=== PATIENT | female | born 2000 | race Caucasian/White ===

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

== ENCOUNTER 2019-03-05 02:04 | Emergency (ER) | payer OTHER ==
[2019-03-05 02:57] LABS: Urine Appearance Clear; Urine Bilirubin Negative (Negative); Urine Blood Negative (Negative); Urine Color Straw; Urine Glucose Negative (Negative); Urine Ketones Negative (Negative); Urine Nitrite Negative (Negative); Urine Protein Negative (Negative); Urine Specific Gravity 1.008 (1.010-1.030); Urine Urobilinogen Negative (Negative)
--- NOTE | 2019-03-05 03:18 | ED ---
- HPI Summary HPI Summary: Pt is a 18 y/o F presenting to the ED with a chief complaint of issues. She is 29wks , on her first , due on May 19. A0. She states she hasnt felt any movement all day which is abnormal for her, so she wanted to come into the ED to have the baby evaluated. She denies vaginal bleeding, discharge, abd pain, fever, vomiting, burning with urination, or other problems with . Next residential care facility manager appt Saturday. - History of Current Complaint Chief Complaint: EDOBProblems Stated Complaint: /HASNT FELT BABY MOVE PER PT Time Seen by Provider: 03/05/19 02:22 Hx Obtained From: Patient Chief Complaint: Concern for Demise Onset/Duration: Started Hours Ago, Still Present Timing: Constant, Lasting Hours Current Severity: None Pain Intensity: 0 Location of Pain: None Character: None Aggravating Factors: Nothing Alleviating Factors: Nothing Associated Signs and Symptoms: Negative: Fever, Urinary Symptoms, Vaginal Bleeding or Discharge, Vomiting - Allergies/Home Medications Allergies/Adverse Reactions: Allergies Allergy/AdvReac Type Severity Reaction Status Date / Time No Known Allergies Allergy Verified 03/05/19 02:08 Home Medications: Home Medications Tablet 1 tab PO DAILY 03/05/19 [History Confirmed 03/05/19] PMH/Surg Hx/FS Hx/Imm Hx Previously Healthy: Yes Endocrine/Hematology History: Denies: Hx Diabetes Cardiovascular History: Denies: Hx Hypertension - Surgical History Surgery Procedure, Year, and Place: Foot surgery Infectious Disease History: No Infectious Disease History: Denies: Traveled Outside the [place] in Last 30 Days - Family History Known Family History: Negative: Cardiac Disease, Hypertension, Diabetes - Social History Alcohol Use: None Hx Substance Use: Yes Substance Use Type: Reports: Marijuana Hx Tobacco Use: No Smoking Status (MU): Never Smoked Tobacco Review of Systems - ROS Summary Review of Systems Summary: Home Medications Medication Instructions Recorded Confirmed Type Tablet 1 tab PO DAILY 03/05/19 03/05/19 History Negative: Fever Negative: Abdominal Pain, Vomiting, Nausea Negative: burning, discharge, other - bleeding vaginally All Other Systems Reviewed And Are Negative: Yes Physical Exam - Summary Physical Exam Summary: General: Well-developed, Well-nourished gravid female. No acute distress. HEENT: Normocephalic, Atraumatic. Eyes: Conjuctiva normal, PERRL. Oropharynx: Clear, mucous membranes moist, (-) exudates. Neck: Soft, FROM, (-) lymphadenopathy, (-) thyromegaly, (-) JVD. Cardiovascular: Normal sinus rhythm, (-) murmur. Lungs: Clear to auscultation bilaterally (-) wheezes, (-) rales, (-) rhonchi. Abdomen: Uterus is soft, fundus above the umbilicus. heart tones 140s. Nml bowel sounds. Non-tender. Back: (-) CVA tenderness Extremities: No edema. Skin: Warm, dry, (-) rash. Neuro: Alert and oriented x3, no focal deficits. Psychiatric: Mood normal, affect normal. - Physical Exam Triage Information Reviewed: Yes Vital Signs Reviewed: Yes Procedures - Sedation Patient Received Moderate/Deep Sedation with Procedure: No Diagnostics - Vital Signs Vital Signs Temp Pulse Resp BP Pulse Ox 03/05/19 02:05 97.9 F 91 18 107/76 100 - Laboratory Lab Results: Lab Results 03/05/19 Range/Units 02:46 Urine Color Straw Urine Appearance Clear Urine pH 7.0 (5-9) Ur Specific [place] 1.008 L (1.010-1.030) Urine Protein Negative (Negative) Urine Ketones Negative (Negative) Urine Blood Negative (Negative) Urine Nitrate Negative (Negative) Urine Bilirubin Negative (Negative) Urine Urobilinogen Negative (Negative) Ur Leukocyte Esterase Negative (Negative) Urine Glucose Negative (Negative) Lab Statement: Any lab studies that have been ordered have been reviewed, and results considered in the medical decision making process. Course/Dx - Course Course Of Treatment: 18 year old female presents as at 28 weeks gestation with decreased movement after working all day. no abdominal pain, no vaginal discharge or bleeding. no fever or urinary symptoms. heart tones reassuring at 140s. improved movement of fetus. patient discharged to home. follow up with residential care facility manager. follow up sooner for any worsening symptoms - Diagnoses Provider Diagnoses: Decreased movement Discharge ED - Sign-Out/Discharge Documenting (check all that apply): Patient Departure - Discharge Plan Condition: Stable Disposition: HOME Patient Education Materials: (ED) Referrals: Garth JEAN,Rajat Pennington [Primary Care Provider] - Additional Instructions: Please follow up with your [employer] [employer] at your appointment on Saturday. Please return to ED for any new or worsening symptoms. - Billing Disposition and Condition Condition: STABLE Disposition: Home - Attestation Statements Document Initiated by Dennis: Yes Documenting Scribe: Zoe Paez Provider For Whom Dennis is Documenting (Include Credential): Dianne Dimas MD. Scribe Attestation: Zoe Moore, scribed for Dianne Dimas MD. on 03/05/19 at 1936. Scribe Documentation Reviewed: Yes Provider Attestation: The documentation as recorded by the Zoe webster accurately reflects the service I personally performed and the decisions made by , Dianne Dimas MD. Status of Scribe Document: Viewed
[2019-03-05 03:34] VITALS: BP 105/59
== END 2019-03-05 03:30 | disposition home or self-care (01) ==
LOC: ED 02:04
DX: O36.8130 Decreased fetal movements, third trimester, not applicable or unspecified (principal); Z3A.29 29 weeks gestation of pregnancy
CPT/HCPCS: 81003; 99282

== ENCOUNTER 2019-05-15 10:04 | Inpatient (IN) | payer OTHER ==
[2019-05-15] MEDS ORDERED: Lactated Ringers 1000 ML Bag* 1,000 ML IV ONE (11:25)
--- NOTE | 2019-05-15 11:35 | HP ---
General Information - Reason for Visit Rupture of membranes at term - General Information Maternal Age: 18 Grav: 1 Para: 0 SAB: 0 IEA: 0 Estimated Due Date: 05/20/19 Determined By: LMP Maternal Blood Type and Rh: O Positive - Results this Serology/RPR Result: Non-Reactive Rubella Result: Immune HBsAg Result: Negative HIV Result: Negative GBS Culture Result: Negative Past Medical History Delivery History: See Records Delivery History Comment: no prior deliveries Pertinent Past Medical History: Non-Contributory Pertinent Past Surgical History: See Records Past Surgical History Comment: Pin of metatarsal bone in 2013 Pertinent Family History: Non-Contributory - Antepartal Records Antepartal Records: Reviewed, Complicated by: - varicella equivocal status Review of Systems Constitutional: Uncomfortable CV Complaint: No Respiratory: Shortness of Breath: No Gastrointestinal: Normal Bowel Movement, Nausea Genitourinary: Leaking Fluid, No Dysuria, No Bleeding Musculoskeletal: Contractions Neurological: No Headache, No Visual Changes Movement: Normal Exam Allergies/Adverse Reactions: Allergies lidocaine Adverse Reaction (Intermediate, Verified 05/14/19 16:24) Pain B/P: 125/78, P: 84, R: 18, T: 98.8 Lab Values - Entire Visit: Laboratory Tests 05/15/19 10:47 Vag Amniotic Fld Detect Positive - Measurements Pre- Weight: 128 lb - Exam Breast: Breast Exam Deferred CVA: No CVA Tenderness Extremities: No Edema Heart: Normal Rhythm/Heart Sounds HEENT: No Significant Findings Lungs: Clear Bilaterally Reflexes: DTR 2+ - Abdominal Exam Abdomen Exam: Non-Tender, Fundal Height Consistent with Dates - Ultrasound/Biophysical Profile Ultrasound Status: Not Done Targeted Exam Findings See L&D Outpatient Visit Provider Note for Findings: N/A Estimated Weight: 7.5 lb by kellie Cervical Exam: 2cm Effacement: 90% Station: -1 Presenting Part: Vertex Membrane Status: SROM Amniotic Fluid Evaluation: Positive ROM Plus Bleeding/Discharge: None EFM Findings - External Monitor Findings Baseline Heart Rate: 135 External Monitor Findings: Accelerations Present, No Pattern of Variable or Late Decelerations, Variability Moderate, Baseline Stable Contractions: Regular, Moderate, 45-90 Seconds Contraction Frequency: 3-5 min Assessment/Plan - Plan Plan: Admit - Anticipate Vaginal Delivery - Date/Time of Admission Date of Admission: 05/15/19 Time of Admission: 11:30
[2019-05-15] MEDS ORDERED: Lactated Ringers 1000 ML Bag* 1,000 ML IV SCH ×2 (12:00→20:00)
[2019-05-15 12:10] LABS: Urine Benzodiazepine Screen None Detected (None Detect); Urine Opiates Screen None Detected (None Detect)
--- NOTE | 2019-05-15 17:13 | PN ---
Progress Note - Progress Note Date of Service: 05/15/19 Note: S: Reports UCs have gotten more intense. Having to really breathe through them now. Requests cervical exam O: FHR: baseline 150, moderate variability, + accelerations, no decelerations UCs: q 2-4 min, moderate to palpation VE: 3/90/-1 posterior. Clear fluid. Bloody show A: IUP at 39 2/7 weeks No evidence of metabolic acidemia Early labor P: Discussed position changes, keeping bladder empty. Dorota desires to get back into tub Reassess in 3-4 hrs or sooner PRN Anticipate SVB
[2019-05-15] MEDS ORDERED: OXYTOCIN* 10 UNITS/ML 1 ML VIAL IM ONE (19:25)
[2019-05-15] MEDS ORDERED: Varicella Virus Vaccine Live* 0.5 ML VIAL SUBCUT ONE (19:36)
[2019-05-15] MEDS ORDERED: Witch Hazel PAD* JAR TOPICAL PRN (19:36)
[2019-05-15] MEDS ORDERED: Acetaminophen TAB* 325 MG PO PRN (19:36)
[2019-05-15] MEDS ORDERED: Dibucaine 1% 28.35 GM TUBE PR PRN (19:36)
[2019-05-15] MEDS ORDERED: Glycerin ADULT SUPP PR PRN (19:36)
--- NOTE | 2019-05-15 19:59 | PROCNOTE ---
[facility] OB: Delivery Note - Delivery A Date of : 05/15/19 Time of : 18:57 [place] Sex: Female Score 1 Minute: 9 Score 5 Minutes: 9 Gestational Age in Weeks and Days at Delivery: 39 Weeks and 2 Days Delivery Method: Spontaneous Vaginal Labor: Spontaneous Did Patient attempt ?: N/A, No Previous Amniotic Fluid: Clear Estimated Blood Loss: 350 Anesthesia/Analgesia: None Delivered By: Harriet Rodriguez - Nursery Level of Nursery: Regular/Bedside - Perineum Perineal Injury: 1st Degree Perineal Injury Comment: repaired under lidocaine infiltration with 3-0 vicryl rapide Perineal Repair: By Delivering Practioner - Events Delivery Events of Note: Pitocin Only After Delivery - Additional Delivery Notes Additional Delivery Notes: experienced SROM to clear fluid at 0730 with regular contractions. Began feeling uncomfortable at 1700, cervix 3 cm. Began involuntarily pushing at 1846 , found to be fully dilated. Slow, controlled delivery of head OA to IVANIA at 1857, shoulders followed easily with next push. Loose nuchal x 1 unwrapped and female delivered to maternal abdomen. Infant vigorous, spontaneous cry, dried and stimulated. Apgars 9 and 9. Cord was doubly clamped and cut by infants father once pulsations ceased, intact placenta delivered via luke at 1904. Fundus firm with massage. perineum inspected, first degree laceration noted. Discussed lidocaine allergy with patient, she stated she desired use of lidocaine for repair. 10U IM pitocin given for prevention of PPH given fast progression from early labor to delivery. EBL = 350 cc. Mother and infant stable at time of note, weight pending for skin to skin and initiation of .
[2019-05-15] MEDS ORDERED: Simethicone TAB* 80 MG TAB.CHEW PO SCH (21:00)
[2019-05-15] MEDS: Ibuprofen TAB* 600 MG PO PRN (21:25)
[2019-05-15] MEDS: Docusate CAP* 100 MG PO SCH (21:26)
[2019-05-15] MEDS ORDERED: Lidocaine 1% INJ* 10 MG/ML 30 ML SDV ONE (22:13)
[2019-05-16 08:25] LABS: ABS Basophils 0.1 10^3/ul (0-0.2); ABS Lymphocytes 2.7 10^3/ul (1.0-4.8); ABS Monocytes 1.2 10^3/ul (0-0.8); ABS Neutrophils 15.8 10^3/ul (1.5-7.7); Eosinophil % 0.2 %; Hematocrit 33 % (35-47); Hemoglobin 11.5 g/dL (12.0-16.0); Lymphocyte % 13.7 %; Mean Corpuscular HGB Conc 35 g/dL (31-36); Mean Corpuscular Hemoglobin 31 pg (27-31); Mean Corpuscular Volume 90 fL (80-97); Mean Platelet Volume 9.1 fL (7.4-10.4); Platelet Count 216 10^3/uL (150-450); Red Blood Count 3.73 10^6 /uL (3.70-4.87); Red Cell Distribution Width 13 % (10-15); White Blood Count 19.9 10^3/uL (3.5-10.8)
[2019-05-16] MEDS ORDERED: Ferrous Gluconate TAB* 324 MG TAB PO SCH (09:00)
[2019-05-16] MEDS: Docusate CAP* 100 MG PO SCH ×2 (10:53→20:45)
[2019-05-16] MEDS: Ibuprofen TAB* 600 MG PO PRN (19:45)
[2019-05-17] MEDS: Ibuprofen TAB* 600 MG PO PRN (03:09)
[2019-05-17] MEDS: Docusate CAP* 100 MG PO SCH (07:57)
[2019-05-17 08:09] VITALS: BP 110/70
== END 2019-05-17 11:48 | disposition home or self-care (01) | DRG 560 ==
LOC: MCHOBOUT 10:04 → MCHOB 11:22
PROVIDERS: ADMIT Midwife; ATTEND Midwife
PROC: 10E0XZZ Delivery of Products of Conception, External Approach (ICD-10-PCS; principal; 2019-05-15)
PROC: 0HQ9XZZ Repair Perineum Skin, External Approach (ICD-10-PCS; 2019-05-15)
DX: O69.81X0 Labor and delivery complicated by cord around neck, without compression, not applicable or unspecified (principal); Z37.0 Single live birth; O70.0 First degree perineal laceration during delivery; Z3A.39 39 weeks gestation of pregnancy
CPT/HCPCS: 36415; 80307; 84112; 85025; A9270-GY; G0480; J2590